=== PATIENT | male | born 1955 | race African-American/Black ===

== ENCOUNTER 2021-08-10 19:23 | Emergency (ER) | payer MEDICARE, MEDICAID ==
[~2021-08-10] VITALS: Ht 170 cm; Wt 68.0 kg
[2021-08-10 19:28] VITALS: BP 165/98
[2021-08-10] MEDS ORDERED: FAMOTIDINE 20 MG (PEPCID) TABLET PO STA (19:44)
[2021-08-10] MEDS ORDERED: methylPREDNISolone 80 MG/ML (DEPO MEDROL) VIAL IM STA (19:44)
--- NOTE | 2021-08-10 19:51 | ED General ---
General Chief Complaint: Allergic Reaction Stated Complaint: ALL OVER BODY RASH Source of Information: Patient History of Present Illness Date Seen by Provider: Aug 10, 2021 Time Seen by Provider: 19:25 Initial Comments 66-year-old male presenting with complaints of generalized rash and itching for the last week. He states that he had used a new cologne that someone had given him. He also had a new scent on a dryer sheet. He states that he was unaware of any other new exposures for soaps, detergents, clothes, lotions that could have triggered his rash. He did try taking 2 Benadryl a few nights ago but felt that it did not resolve his symptoms. He has not continued to take the Benadryl. He has not tried anything else since the Benadryl. He has not followed up with his regular provider about his symptoms. He denies having problems with allergies and rash in the past. Timing/Duration: 1 Week Severity: Severe Associated Systoms: No Chest Pain, No Cough, No Diaphoresis, No Fever/Chills, No Headaches, No Loss of Appetite, No Malaise, No Nausea/Vomiting; Rash; No Seizure, No Shortness of Air, No Syncope, No Weakness, No Other (No wheezing or difficulty swallowing) Allergies and Home Medications Allergies Coded Allergies: Penicillins (Verified Allergy, Unknown, 08/10/21) Patient Home Medication List Home Medication List Reviewed: Yes Famotidine (Famotidine) 20 Mg Tablet, 20 MG PO BID Prescribed by: KYLE PRECIADO on 08/10/211955 Hydroxyzine HCl (Hydroxyzine HCl) 50 Mg Tablet, 50 MG PO Q6H PRN for itching/rash Prescribed by: KYLE PRECIADO on 08/10/211955 Review of Systems Review of Systems Constitutional: No chills, No fever EENTM: No nose congestion, No throat pain, No throat swelling Respiratory: No cough, No short of breath, No stridor, No wheezing Cardiovascular: no symptoms reported Gastrointestinal: no symptoms reported Genitourinary: no symptoms reported Musculoskeletal: no symptoms reported Skin: see HPI Psychiatric/Neurological: Anxiety Past Knunxur-Dwiyui-Tfyykf Hx Patient Social History Tobacco Use?: Yes Tobacco type used: Cigarettes Smoking Status: Current Everyday Smoker Use of E-Cig and/or Vaping dev: No Substance use?: No Alcohol Use?: No Pt feels they are or have been: No Immunizations Up To Date Influenza Vaccine Up-to-Date: No; Not Current Past Medical History Surgery/Hospitalization HX: Hypertension Physical Exam Vital Signs Vital Signs - First Documented 08/10/21 19:28 Temp 36.2 Pulse 91 Resp 12 B/P (MAP) 165/98 (120) O2 Delivery Room Air Capillary Refill : Height, Weight, BMI Height: '" Weight: lbs. oz. kg; BMI Method: General Appearance: WD/WN, Anxious HEENT: PERRL/EOMI, Pharynx Normal (Other than missing several teeth. There is no swelling to his tongue or oropharynx.) Neck: Full Range of Motion, Normal Inspection, Non Tender, Supple Respiratory: Chest Non Tender, Lungs Clear, Normal Breath Sounds, No Accessory Muscle Use, No Respiratory Distress; No Stridor, No Wheezing Cardiovascular: Regular Rate, Rhythm, Normal Peripheral Pulses Neurologic/Psychiatric: Alert, Oriented x3, dual hose cementer II-XII Norm as Tested Skin: Warm/Dry, Rash (Diffuse erythematous urticarial type rash with areas of excoriation) Progress/Results/Core Measures Suspected Sepsis SIRS Temperature: Pulse: Respiratory Rate: Blood Pressure / Mean: Results/Orders My Orders Orders - KYLE PRECIADO MD Dexamethasone Injection (Decadron Inje (08/10/21 19:44) Methylprednisolone Acetate Inj (Depo-Med (08/10/21 19:44) Famotidine Tablet (Pepcid Tablet) (08/10/21 19:44) Vital Signs/I&O 08/10/21 19:28 Temp 36.2 Pulse 91 Resp 12 B/P (MAP) 165/98 (120) O2 Delivery Room Air Capillary Refill : Progress Note : Progress Note Since the patient drove himself we will give him steroids and Pepcid here and have him take Benadryl when he gets home. Since he did not feel the Benadryl had helped that much will send a prescription for hydroxyzine to the pharmacy. Counseled on follow-up and return precautions. Departure Impression Primary Impression: Urticarial rash Additional Impressions: Allergic reaction Qualified Codes: T78.40XA - Allergy, unspecified, initial encounter Contact dermatitis Qualified Codes: L23.9 - Allergic contact dermatitis, unspecified cause Disposition: 01 HOME, SELF-CARE Condition: Stable Departure-Patient Inst. Decision time for Depature: 19:50 Referrals: JOON SAN DO Primary Care Physician Patient Instructions: Allergic Reaction ED, Skin Rash ED, Contact Dermatitis (DC) Add. Discharge Instructions: When you get home take 2 of the Benadryl or 50 mg by mouth. You could repeat this overnight every 3-4 hours as you need to to help with rash and itching. The steroids will continue to help with your rash and itching over night and then stay in your system over the next 7 to 10 days to help with the rash and itching. Take Pepcid (Famotidine) 20 mg twice a day for next week to help with rash and itching. Tomorrow pickler helper the prescription from the pharmacy for hydroxyzine. You would take this in place of the Benadryl. Check back with the clinic for continued symptoms and concerns Consider changing to an allergen free, dye free, fragrance free detergent and dryer sheet. Do not use any more of the colon that was given to you. All discharge instructions reviewed with patient and/or family. Voiced understanding. Scripts Famotidine (Famotidine) 20 Mg Tablet 20 MG PO BID for itching/rash for 7 Days, #14 TAB 0 Refills Prov: KYLE PRECIADO MD 08/10/21 Hydroxyzine HCl (Hydroxyzine HCl) 50 Mg Tablet 50 MG PO Q6H PRN for itching/rash for 7 Days, #28 TAB 0 Refills Prov: KYLE PRECIADO MD 08/10/21 KYLE PRECIADO MD Aug 10, 2021 19:51
[2021-08-10] MEDS ORDERED: FAMO20TA5 PO (19:56)
[2021-08-10] MEDS ORDERED: HYDR50TA76 PO (19:56)
== END 2021-08-10 20:03 | disposition home or self-care (01) ==
LOC: ER FS 19:25
DX: L50.9 Urticaria, unspecified (principal); I10 Essential (primary) hypertension; F17.210 Nicotine dependence, cigarettes, uncomplicated
CPT/HCPCS: 99281

== ENCOUNTER 2022-06-14 15:15 | Emergency (ER) | payer MEDICARE, MEDICAID ==
[~2022-06-14 15:15] MED LIST: FAMO20TA5 PO; HYDR50TA76 PO
== END 2022-06-14 15:31 | disposition left against medical advice (07) ==
LOC: EDUNIT# 15:15 → ER FS 15:19
DX: F19.239 Other psychoactive substance dependence with withdrawal, unspecified (principal)